=== PATIENT | female | born 1950 | race Caucasian/White ===

== ENCOUNTER 2019-07-06 03:38 | Emergency (ER) | payer MEDICARE ==
[~2019-07-06] VITALS: Ht 160 cm; Wt 50.3 kg
[2019-07-06 03:41] VITALS: BP 168/72
[2019-07-06] MEDS ORDERED: ACYC-202 PO (04:01)
[2019-07-06] MEDS ORDERED: HYDR-3965 PO (04:01)
[2019-07-06] MEDS ORDERED: acetaminophen 325mg tablet PO ONE (04:05)
[2019-07-06] MEDS ORDERED: ketorolac trometh. 30mg/ml inj. IM ONE (04:05)
== END 2019-07-06 04:16 | disposition home or self-care (01) ==
LOC: ER 03:39
DX: B02.9 Zoster without complications (principal); M81.0 Age-related osteoporosis without current pathological fracture; F17.210 Nicotine dependence, cigarettes, uncomplicated; Z79.899 Other long term (current) drug therapy
CPT/HCPCS: 96372; 99283; J1885

== ENCOUNTER 2020-04-01 17:36 | Emergency (ER) | payer MEDICARE ==
[~2020-04-01] VITALS: Ht 158.8 cm; Wt 50.0 kg
[~2020-04-01 17:36] MED LIST: LIDOcaine 1% W/epiNEPHrine 1:100,000 20ml vial ONE
[2020-04-01 17:40] VITALS: BP 160/57
== END 2020-04-01 18:35 | disposition home or self-care (01) ==
LOC: ER 17:36
DX: S30.861A Insect bite (nonvenomous) of abdominal wall, initial encounter (principal); T14.8XXD Other injury of unspecified body region, subsequent encounter; M81.0 Age-related osteoporosis without current pathological fracture; W57.XXXA Bitten or stung by nonvenomous insect and other nonvenomous arthropods, initial encounter; Y93.89 Activity, other specified; Y92.89 Other specified places as the place of occurrence of the external cause; Y99.8 Other external cause status
CPT/HCPCS: 10060; 99282